=== PATIENT | male | born 1990 | race Caucasian/White ===

== ENCOUNTER 2021-02-06 08:43 | Emergency (ER) | payer BC ==
[~2021-02-06] VITALS: Ht 180.3 cm; Wt 118.2 kg
[2021-02-06] MEDS ORDERED: FLUT1DIS INH (08:58)
[2021-02-06 09:52] VITALS: BP 169/100
== END 2021-02-06 09:58 | disposition home or self-care (01) ==
LOC: ER 08:44
DX: U07.1 COVID-19 (principal); J20.8 Acute bronchitis due to other specified organisms; Z88.2 Allergy status to sulfonamides; Z79.899 Other long term (current) drug therapy
CPT/HCPCS: 99283